=== PATIENT | female | born 1970 | race Two or more races ===

== ENCOUNTER 2018-01-03 10:47 | Emergency (ER) | payer OTHER ==
[~2018-01-03] VITALS: Ht 165.1 cm; Wt 122.0 kg
[2018-01-03] MEDS ORDERED: TAMS0.4C (11:06)
[2018-01-03] MEDS ORDERED: PERCOCET 5-3251 EACH PO (15:32)
== END 2018-01-03 15:37 | disposition home or self-care (01) ==
LOC: ER 10:47
DX: N20.0 Calculus of kidney (principal); R10.31 Right lower quadrant pain

== ENCOUNTER 2018-01-16 11:15 | Outpatient (CLI) | payer OTHER ==
[~2018-01-16 11:15] MED LIST: PERCOCET 5-3251 EACH PO; TAMS0.4C
== END 2018-01-16 11:26 | disposition home or self-care (01) ==
LOC: RAD 501 11:15
DX: N20.1 Calculus of ureter (principal)